=== PATIENT | male | born 1960 | race Caucasian/White ===

== ENCOUNTER 2018-02-13 14:34 | Outpatient (CLI) | payer OTHER ==
[2018-02-13] MEDS ORDERED: IOPAMIDOL-300 100 ML VIAL ONE (15:40)
[2018-02-13] MEDS ORDERED: IOPAMIDOL-300 100 ML VIAL IVP ONE (16:27)
--- NOTE | 2018-02-13 17:20 | CT Report ---
Reason: COUGH, PNEUMONIA Procedure Date: 02/13/2018 Accession Number: [id number] / [id number] Procedure: CT - Chest W/ CPT Code: FULL RESULT: EXAM: CT CHEST EXAM DATE: 02/13/2018 03:56 PM. CLINICAL HISTORY: Cough and pneumonia. COMPARISONS: 07/22/2007. TECHNIQUE: Routine helical CT imaging was performed through the chest. IV contrast: 80 cc Isovue 300. Reconstructions: Coronal and sagittal. In accordance with CT protocol optimization, one or more of the following dose reduction techniques were utilized for this exam: automated exposure control, adjustment of mA and/or KV based on patient size, or use of iterative reconstructive technique. FINDINGS: Lungs/Pleura: Dense posterior medial left lower lobe consolidation with air bronchograms. Patchy paraseptal and centrilobular emphysema predominantly affecting the lung apices. No endobronchial lesion. No pneumothorax. Trace left pleural effusion. No significant right pleural effusion Mediastinum: No cardiac enlargement. No pericardial effusion or adenopathy. Right coronary artery stent is noted. Patchy coronary artery calcifications are noted. Bones: Unremarkable. Visualized Abdomen: Unremarkable. Other: Homogeneous enhancement of the thyroid gland. No thyroid nodule or mass. No supraclavicular or axillary lymphadenopathy identified. IMPRESSION: 1. Dense left lower lobe consolidation. Small left pleural effusion. No pneumothorax. Recommend follow-up radiographs to document resolution of consolidation. 2. Mild centrilobular and paraseptal emphysema. 3. Coronary artery disease. No significant cardiac enlargement or pericardial effusion or bulky adenopathy. RADIA
== END 2018-02-13 14:35 | disposition home or self-care (01) ==
LOC: DI 14:34
PROVIDERS: ATTEND Specialist
DX: J18.1 Lobar pneumonia, unspecified organism (principal); J91.8 Pleural effusion in other conditions classified elsewhere; J43.2 Centrilobular emphysema; I25.10 Atherosclerotic heart disease of native coronary artery without angina pectoris
CPT/HCPCS: 71260; Q9967

== ENCOUNTER 2023-04-01 01:28 | Emergency (ER) | payer OTHER ==
--- NOTE | 2023-04-01 01:38 | ED Physician Documentation ---
PD HPI FOCAL NEURO - Stated complaint Stated Complaint: R FACE NUMB - History obtained from History obtained from: Patient, Family - Additional information Additional information: HPI from patient and patient's daughter. Driven to ED by his daughter. Patient c/o difficulty with word-finding, slurred speech/dysarthria, and right hand weakness. Patient says he was awake, sitting in a chair at home watching TV at approximately 00:30 this morning when he noted the symptoms. He says he was trying to burr picker and grasp objects such as his glasses with his right hand and found he could not do so; unclear if this was weakness or lack of coordination, but it is new for patient. Patient is right-hand dominant. He woke his daughter and they both noted his difficulty with word-finding and slurred speech. Patient admits to drinking alcohol but both patient and his daughter say that he has never had any of these symptoms including the difficulty with speech and word- finding in relation to his alcohol intake. He denies h/o TIA, CVA. PMHx includes NE in 2014. He does not take any prescription medications; he indicates he used to take 81 mg ASA QD and a statin but stopped taking these (unclear when). Review of Systems Eyes: denies: Loss of vision, Decreased vision Cardiac: denies: Chest pain / pressure Respiratory: denies: Dyspnea GI: denies: Abdominal Pain, Nausea, Vomiting Neurologic: reports: Focal weakness, Difficulty speaking. denies: Generalized weakness, Numbness, Confused, Altered mental status, Headache, Head injury PD PAST MEDICAL HISTORY - Past Medical History Past Medical History: Yes Cardiovascular: NE - Present Medications Home Medications: Ambulatory Orders Medication Instructions Recorded Confirmed Atorvastatin Calcium 40 mg PO DAILY #30 tablet 04/01/23 Clopidogrel [Plavix] 75 mg PO DAILY 21 Days #21 tablet 04/01/23 - Allergies Allergies/Adverse Reactions: Allergies Allergy/AdvReac Type Severity Reaction Status Date / Time No Known Drug Allergies Allergy Verified 04/01/23 02:00 PD ED PE NORMAL - Vitals Vital signs reviewed: Yes - General General: Alert and oriented X 3, No acute distress, Well developed/nourished - HEENT HEENT: PERRL, EOMI - Neck Neck: Supple, no meningeal sign - Cardiac Cardiac: RRR, No murmur - Respiratory Respiratory: No respiratory distress, Clear bilaterally - Abdomen Abdomen: Soft, Non tender - Derm Derm: Normal color, Warm and dry - Neuro Neuro: Alert and oriented X 3, commercial producer 2-12 intact, No motor deficit, No sensory deficit Eye Opening: Spontaneous Motor: Obeys Commands Verbal: Oriented GCS Score: 15 PD ED PE EXPANDED - Neuro Neuro: Normal Sensation, Dysarthria (mildly slurred speech; mild difficulty word-finding early in HPI/ROS but noticeably improves during H+P) NIHSS - Level of Consciousness Level of consciousness: (0) Alert, Keenly responsive LOC Questions: (0) Answers both Q's correct LOC Commands: (0) Performs both correctly - Gaze Best Gaze: (0) Normal - Visual Visual: (0) No loss - Facial Palsy Facial Palsy: (0) Normal, symmetrical movement - Motor Arms (both separate) Motor Arm (right): (0) No drift Motor Arm (left): (0) No drift - Motor Legs (both separate) Motor Leg (right): (0) No drift Motor Leg (left): (0) No drift - Limb Ataxia Limb Ataxia: (0) Absent - Sensory Sensory: (0) Normal - Best Language Best Language: (1) [id number] - Dysarthria Dysarthria: (1) [id number] dysarthria - Extinction and Inattention (formally neg Extinction and inattention: (0) No abnormality - Total Score/Results Total Score/Result: 2 Results - Vitals Vitals: Vital Signs - 24 hr 04/01/23 04/01/23 01:48 01:51 Temperature 35.7 C L Heart Rate 84 Respiratory 20 18 Rate Blood Pressure 136/81 H O2 Saturation 99 Oxygen O2 Source Room air - Labs Labs: Laboratory Tests 04/01/23 04/01/23 04/01/23 02:07 02:10 02:10 WBC 6.2 RBC 4.87 Hgb 13.9 L Hct 44.4 MCV 91.2 MCH 28.5 MCHC 31.3 L RDW 14.6 Plt Count 214 MPV 9.5 Neut # (Auto) 3.1 Lymph # (Auto) 2.3 [place] # (Auto) 0.5 Eos # (Auto) 0.2 Baso # (Auto) 0.1 Absolute Nucleated RBC 0.00 Nucleated RBC % 0.0 PT 11.7 INR 1.1 APTT 31.6 Sodium Potassium Chloride Carbon Dioxide Anion Gap BUN Creatinine Estimated GFR (MDRD) Glucose Calcium Total Bilirubin AST ALT Alkaline Phosphatase Total Protein Albumin Globulin Albumin/Globulin Ratio Lipase Ethyl Alcohol SARS-CoV-2 (PCR) NOT DETECTED 04/01/23 02:10 WBC RBC Hgb Hct MCV MCH MCHC RDW Plt Count MPV Neut # (Auto) Lymph # (Auto) [place] # (Auto) Eos # (Auto) Baso # (Auto) Absolute Nucleated RBC Nucleated RBC % PT INR APTT Sodium 143 Potassium 3.9 Chloride 109 Carbon Dioxide 26 Anion Gap 8.0 BUN 14 Creatinine 0.9 Estimated GFR (MDRD) 85 L Glucose 112 H Calcium 9.1 Total Bilirubin 0.3 AST 44 H ALT 31 Alkaline Phosphatase 88 Total Protein 7.4 Albumin 4.2 Globulin 3.2 Albumin/Globulin Ratio 1.3 Lipase 115 H Ethyl Alcohol 344.3 SARS-CoV-2 (PCR) - Rads (name of study) CTH (stroke protocol) Relevant Findings:: Prelim report reviewed, See rad report CTA head Relevant Findings:: Prelim report reviewed, See rad report CTA neck Relevant Findings:: Prelim report reviewed, See rad report PD Medical Decision Making - ED course Complexity details: reviewed results, re-evaluated patient, considered differential, d/w patient, d/w family, d/w group segment consultant (telestroke (Dr. Ott)) ED course: Presents with symptoms s/o CVA although rapid improvement early in stay (during H+P, patient is already reporting resolution of his right hand weakness and near-resolution of his slurred speech and difficulty with word-finding). No acute abnormality on CTH (changes c/w chronic ischemia are noted), no acute findings on CTA head. The CTA neck shows less than 50% stenosis of right carotid artery but 99% stenosis of left common carotid artery bifurcation and proximal left internal carotid artery. No concerning findings on blood tests. ETOH is quite elevated at .344; this is likely incidental, as it would not explain focal (right hand) weakness, and patient's daughter indicates she is familiar with patient's alcohol intake and has never seen him have difficulty with word-finding nor such pronounced slurred speech as he had [employer]. Telestroke service was consulted early in stay (immediately prior to patient going for CT scans). I discussed the case with Dr. Ott (neurology with telestroke); thrombolytics are not indicated due to the low NIHSS score and rapidly improving / resolving symptoms. After CT scans are resulted, I was informed by ED RN that patient was removing monitoring equipment and stating he was going to leave. I reevaluated patient and reviewed the results, emphasizing the concerning findings on CT neck. I explained to patient that I would be recontacting the neurologist for recommendations in light of these findings. Patient agreeable to stay in ED. I recontacted Dr. Ott, specifically to inquire as to recommendations related to the CT neck findings. He recommends transfer to a hospital that has vascular surgery capability for consideration of CEA. He also recommends 325mg ASA, 80mg atorvastatin, and 300mg clopidogrel. Unfortunately, when I went to discuss these recommendations with patient, he had now removed his IV himself and was dressed and saying he wants to leave. He was polite and did listen as I explained the neurologist's recommendations, the reasoning behind the medications recommended and the recommendation for transfer. I reviewed with him the risks of refusing, including recurrence of symptoms, permanent disability (CVA/stroke), . The patient voices understanding of these points and acknowledges he is risking possible and potentially preventable permanent disability and by leaving. He says he will seek follow up. Patient's daughter is in the room during his ED stay and she tells me she will be aggressive in working on follow up for patient. He does not have a PCP but has health insurance. Patient signed AMA form. He was willing to take the 80mg atorvastatin and I provided an rx for 40mg QD atorvastatin. He declined 325mg ASA, says he has 81 mg asa at home and I instructed him to take four of these as soon as he gets home. He was not willing to wait for the clopidogrel 300mg loading dose; he is given rx for 75mg QD clopidogrel QD and says he will fill it and take as prescribed. Departure - Departure Disposition: 07 Against Medical Advice Clinical Impression: TIA (transient ischemic attack) Carotid artery stenosis Qualifiers: Laterality: left Qualified Code(s): I65.22 - Occlusion and stenosis of left carotid artery Condition: Good Instructions: Blockage Carotid Artery, TIA Surgery, ED Transient Ischemic Attack Prescriptions: Atorvastatin Calcium 40 mg PO DAILY #30 tablet Clopidogrel [Plavix] 75 mg PO DAILY 21 Days #21 tablet Comments: The CT scans of your head (both with and without contrast) do not show any evidence of stroke at this time. As we discussed, that your symptoms have resolved would be consistent with a transient ischemic attack (TIA or "mini stroke"); TIA episodes imply resolution of restricted blood flow to the brain before permanent damage has occurred (which is called cerebral vascular accident, commonly called "stroke") and thus CT scans of the brain do not show evidence of TIA. TIA can be a warning sign of a future stroke. The most concerning finding on tonight's tests was the CT scan of your neck. Your right carotid artery was 50% stenosed (50% blockage). A 50% blockage is unlikely to cause any symptoms. However, your left carotid artery was 99% blocked; this is highly concerning as a cause of tonight's symptoms. As we discussed, the neurologist I consulted with recommended that I speak with a vascular surgeon at another hospital to discuss transferring you to an appropriate facility where further testing and possible surgical treatment for the blockage can be undertaken in the inpatient setting. You have elected to declined this and leave AGAINST MEDICAL ADVICE. I recommend that you contact your insurance provider immediately to inquire about the referral process to a vascular surgeon. The neurologist I spoke with recommended that I give you four baby aspirin (four tablets of 81mg aspirin), clopidogrel (another blood-thinning medication), and atorvastatin. You have declined the aspirin because you have this at home. When you get home, you should take 4 tablets of the 81 mg aspirin, and then take 1 tablet of 81 mg aspirin every day until you are instructed otherwise. I am providing you a prescription for the atorvastatin which you should take once per day. I am also providing you with a prescription for the clopidogrel which you will take once per day for 3 weeks. Forms: PCP List Discharge Date/Time: 04/01/23 05:31
[2023-04-01 01:55] VITALS: BP 136/81; O2SAT 99
[2023-04-01 02:15] LABS: BASOPHILS # (AUTO) 0.1 10^3/uL (0.0-0.1); BASOPHILS % (AUTO) 0.8 %; EOSINOPHILS # (AUTO) 0.2 10^3/uL (0.0-0.7); EOSINOPHILS % (AUTO) 2.9 %; HCT - HEMATOCRIT 44.4 % (42.0-52.0); HGB - HEMOGLOBIN 13.9 g/dL (14.0-18.0); LYMPHOCYTES # (AUTO) 2.3 10^3/uL (1.5-3.5); LYMPHOCYTES % (AUTO) 37.4 %; MEAN CORPUSCULAR HEMOGLOBIN 28.5 pg (27.0-31.0); MEAN CORPUSCULAR HGB CONC 31.3 g/dL (32.0-36.0); MEAN CORPUSCULAR VOLUME 91.2 fL (80.0-94.0); MEAN PLATELET VOLUME 9.5 fL (7.4-11.4); MONOCYTES # (AUTO) 0.5 10^3/uL (0.0-1.0); MONOCYTES % (AUTO) 8.3 %; NEUTROPHILS # (AUTO) 3.1 10^3/uL (1.5-6.6); NEUTROPHILS % (AUTO) 50.4 %; PLT - PLATELET COUNT 214 10^3/uL (130-450); RED BLOOD COUNT 4.87 10^6/uL (4.70-6.10); RED CELL DISTRIBUTION WIDTH 14.6 % (12.0-15.0); WHITE BLOOD COUNT 6.2 x10^3/uL (4.8-10.8)
[2023-04-01 02:25] LABS: PARTIAL THROMBOPLASTIN TIME 31.6 secs (24.9-33.3)
[2023-04-01 02:28] LABS: ALBUMIN 4.2 g/dL (3.2-5.5); ALBUMIN/GLOBULIN RATIO 1.3 (1.0-2.2); BILIRUBIN,TOTAL 0.3 mg/dL (0.2-1.0); CALCIUM 9.1 mg/dL (8.5-10.3); CREATININE 0.9 mg/dL (0.6-1.3); ETOH - ETHANOL 344.3 mg/dL; POTASSIUM 3.9 mmol/L (3.5-4.5); TOTAL PROTEIN 7.4 g/dL (6.4-8.9)
[2023-04-01 02:30] LABS: INR 1.1 (0.8-1.2); PT - PROTHROMBIN TIME 11.7 secs (9.9-12.6)
[2023-04-01] MEDS ORDERED: iohexoL-300 100 ML VIAL IVP ONE (05:04)
[2023-04-01] MEDS ORDERED: ATORVASTATIN 40 MG TABLET PO STA (05:12)
--- NOTE | 2023-04-01 09:24 | CT Report ---
PROCEDURE: Head W/O Stroke Protocol INDICATIONS: dysarthria, right hand weakness TECHNIQUE: Noncontrast 4.5 mm thick angled axial sections acquired from the foramen magnum to the vertex, with c oronal reformats. For radiation dose reduction, the following was used: automated exposure control, adjustment of mA and/or kV according to patient size. COMPARISON: Correlation is made with the accompanying head and neck CT angiogram. FINDINGS: Image quality: There is streak artifact seen through the skull base. CSF spaces: Basal cisterns are patent. No extra-axial fluid collections. Ventricles are normal in size and shape. Brain: No midline shift. No intracranial masses or hemorrhage. Gross-white matter interface is norm al. Intraparenchymal Skull and face: Calvarium and visualized facial bones are intact, without suspicious lesions. Sinuses: There is near complete opacification of the right maxillary sinus. Milder mucosal thickenin g can be seen elsewhere. No significant abnormal fluid can be seen within the mastoid air cells. Bi lateral external auditory canal presumed cerumen can be seen. IMPRESSION: No significant intracranial abnormality is seen. No intracranial hemorrhage is seen. If there is strong clinical concern for a stroke, please consider a dedicated brain MRI for further e valuation (assuming that there is no contraindication to MRI). Additional findings: Brain parenchymal volume loss Chronic small vessel ischemic change Focal right maxillary sinus Note: No significant discrepancy from the preliminary report. This study fulfills neurological imaging criteria for inclusion or exclusion of acute stroke therapie s based on available published neurological imaging guidelines. Reviewed by: Sawyer Fonseca MD on 04/01/2023 8:23 AM MEGHAN Approved by: Sawyer Fonseca MD on 04/01/2023 8:23 AM MEGHAN Station ID: [id number]
--- NOTE | 2023-04-01 09:29 | CT Report ---
PROCEDURE: CT Angio Head/Neck INDICATIONS: dysarthria, right hand weakness TECHNIQUE: After the administration of intravenous contrast, 1 mm thick sections acquired from the aortic arch t hrough the [place] of [place]. Post-contrast 4.5 mm thick sections then re-acquired from the foramen m agnum to the vertex. 3-dimensional wikibcs-twqxbrppr-nooxrcgtrm (MIP) and/or volume rendering reform ats were acquired of the central intracranial vasculature and neck separately. For radiation dose re duction, the following was used: automated exposure control, adjustment of mA and/or kV according to patient size. CONTRAST: Omni 300 100ml COMPARISON: Correlation is made with the accompanying noncontrast head CT. FINDINGS: Image quality: There is streak artifact seen through the level of the shoulders. HEAD CT: CSF Spaces: Basal cisterns are patent. No extra-axial fluid collections. Ventricles are normal in size and shape. Brain: No midline shift. No intracranial bleeds or masses. No abnormal intracranial enhancement. Gross-white interface appears normal. Skull and face: Calvarium and visualized facial bones appear intact, without suspicious lesions. Sinuses: Focal right maxillary sinus disease is seen. HEAD CT ANGIOGRAPHY: Anterior circulation: Intracranial internal carotid arteries are normal in size and flow. The flow within the paired anterior cerebral arteries is normal and symmetric. The flow within the middle cer ebral arteries is normal and symmetric. The anterior communicating artery is seen. No aneurysms are seen. Posterior circulation: The visualized portions of the vertebral arteries demonstrate normal caliber, and join to form a normal appearing basilar artery. Incidental note is made of a prominent left po sterior communicating artery, with a diminutive left P1 segment. This is attributed to a type o rigin of the right posterior cerebral artery, which is considered to be a developmental variant of ty pically no clinical consequence. The flow within the posterior cerebral arteries is normal and symm etric. No stenoses, occlusions, or aneurysms. NECK CT ANGIOGRAPHY: Carotid system: The great vessels demonstrate a conventional anatomy as they arise from the aortic a rch. Atherosclerotic calcification can be seen involving the aortic arch and the proximal great vesse ls. The origins of the common carotid arteries appear patent. The common carotid arteries demonstrat e normal caliber and courses. The bifurcation regions demonstrate atherosclerotic irregularity and c alcification, with approximately 50% narrowing seen involving the right proximal internal carotid art barbra near complete stenosis involving the left proximal internal carotid artery, as on series 4 image 165 and on series 7 image 67. The more distal internal carotid arteries demonstrate normal course and caliber. Posterior circulation: The origins of the vertebral arteries both appear widely patent. The more mendez perior extracranial portions of both vertebral arteries also demonstrate normal courses and calibers. They join to form a normal appearing basilar artery. Soft tissues: Visualized neck soft tissues demonstrate no suspicious abnormalities. Mild evidence o f this changes can be seen at the lung apices. Bones: No suspicious bony lesions. Visualized cervical spine appears normally aligned. At least mo derate lower cervical spine degenerative change can be seen. IMPRESSION: Near-complete stenosis involving the left proximal internal carotid artery origin. - Vascular surgery consultation is recommended. No significant intracranial arterial abnormalities are seen. No significant vertebral artery abnormality is seen. Additional findings: type origin of the left posterior cerebral artery Focal right maxillary sinus disease At least moderate lower cervical spine degenerative change Note: No significant discrepancy from the preliminary report. The estimate of stenosis included in the report of the imaging study was calculated using the NASCET method Reviewed by: Sawyer Fonseca MD on 04/01/2023 8:28 AM MEGHAN Approved by: Sawyer Fonseca MD on 04/01/2023 8:28 AM MEGHAN Station ID: [id number]
== END 2023-04-01 05:31 | disposition left against medical advice (07) ==
LOC: ED 01:28
DX: I65.22 Occlusion and stenosis of left carotid artery (principal); Z20.822 Contact with and (suspected) exposure to COVID-19
CPT/HCPCS: 36415; 70450; 70496; 70498; 80053; 80320; 83690; 85025; 85610; 85730; 87635; 99284; 99285; A9270; Q9967

== ENCOUNTER 2023-04-25 13:38 | Outpatient (CLI) | payer OTHER ==
[2023-04-25] MEDS ORDERED: GADOTERATE MEGLUMINE 10 MMOL/20 ML VIAL ONE (13:53)
--- NOTE | 2023-04-25 14:58 | MRI Report ---
PROCEDURE: BRAIN W/WO INDICATIONS: TIA CONTRAST: CLARISCAN 11.4ML TECHNIQUE: Noncontrast axial T1 spin echo, axial T2 fast spin echo, sagittal and axial FLAIR, coronal T2 fast sp in echo, axial gradient echo, axial diffusion and ADC through the brain. After the administration of contrast, axial and coronal T1 spin echo with fat saturation through the brain. COMPARISON: CT head 04/01/2023. FINDINGS: Image quality: Excellent. CSF spaces: Basal cisterns are patent. No extra-axial fluid collections. Ventricles are normal in size and shape. Brain: No midline shift. No intracranial bleeds or masses. No abnormal intracranial enhancement. There is cerebral volume loss for age. There is periventricular white matter chronic small vessel is chemic change. The brainstem appears normal. Diffusion-weighted images demonstrate no acute ischemi c insults. No chronic ischemic insults. Normal intravascular flow voids are present. Skull and face: Calvarial marrow is normal in signal. Orbits appear normal. Sinuses: Right maxillary sinus mucosal thickening. The mastoids appear clear. IMPRESSION: 1.No acute or subacute infarct. No acute intracranial abnormalities. 2.Mild age-related global volume loss and chronic microvascular ischemic changes. Reviewed by: Dawit Banerjee MD on 04/25/2023 2:57 PM PST Approved by: Dawit Banerjee MD on 04/25/2023 2:57 PM PST Station ID: [id number]
[2023-04-25] MEDS ORDERED: GADOTERATE MEGLUMINE 10 MMOL/20 ML VIAL IVP ONE (17:44)
== END 2023-04-25 13:39 | disposition home or self-care (01) ==
LOC: DI 13:38
PROVIDERS: ATTEND Physician Assistant
DX: G45.9 Transient cerebral ischemic attack, unspecified (principal)
CPT/HCPCS: 70553; A9575